=== PATIENT | male | born 1975 | race Caucasian/White ===

== ENCOUNTER → 2019-07-05 15:02 | Outpatient (CLI) | payer OTHER, SELFPAY ==
--- NOTE | ~2019-07-05 | US_ITS ---
EXAMINATION: US soft tissue head and neck DATE: 07/05/2019 15:35 INDICATION: Neck pain and swelling. TECHNIQUE: Multiple ultrasound images of the neck were obtained. COMPARISON: None. FINDINGS: The right thyroid lobe measures 5.7 x 1.6 x 1.8 cm. The left thyroid lobe measures 5.6 x 1.4 x 1.7 c m. There is normal echotexture and echogenicity throughout the thyroid gland. No discrete nodules id entified. Normal vascular flow is present. There are normal lymph nodes in right neck in the patient' s area of concern. IMPRESSION: 1. Normal lymph nodes in right neck in the patient's area of concern. Reviewed, dictated and finalized at location A. [facility]
== END ==
PROVIDERS: PCP Family Medicine Adolescent Medicine; Visit Provider Physician Assistant
DX: R22.1 Localized swelling, mass and lump, neck (principal)
CPT/HCPCS: 76536